=== PATIENT | female | born 1960 | race African-American/Black ===

== ENCOUNTER 2025-01-28 03:00 | Emergency (ER) | payer MEDICAID, MEDICARE ==
[~2025-01-28] VITALS: Ht 160 cm; Wt 61.0 kg
[2025-01-28 03:05] VITALS: BP 134/94; PULSE 90; RESP 20; TEMP 37.1; O2SAT 99
[2025-01-28] MEDS ORDERED: IBUP-1455 MT (03:29)
[2025-01-28] MEDS: IBUPROFEN 600MG TABLET PO ONE (03:46)
== END 2025-01-28 04:33 | disposition home or self-care (01) ==
LOC: ER 03:00
DX: G89.29 Other chronic pain (principal); M25.552 Pain in left hip; M25.551 Pain in right hip; M19.90 Unspecified osteoarthritis, unspecified site
CPT/HCPCS: 99283